=== PATIENT | female | born 1940 | race Caucasian/White ===

== ENCOUNTER 2016-06-03 12:16 | Emergency (ER) | payer MEDICARE, OTHER ==
[~2016-06-03 12:16] MED LIST: AMIT25TA26 PO; ASP81TEC PO; BUDE0.5A IH; BUSP15 PO; ESCI20TA PO; ESTR1TAB15 PO; HCTZ1TAB PO; IPRA3AMP HHN; NAPR500T PO; OMEP40CA25 PO; OXYC-176 PO; POTA8CAP10 PO; PRE20 PO; SYN25 PO; TRAZ-146 PO; ZES20T PO
[2016-06-03 12:27] VITALS: BP 146/64; PULSE 81; RESP 18; O2SAT 99
--- NOTE | 2016-06-03 12:31 | ED.REPORT ---
HPI-Trauma Minor / Fall Date of Service Jun 03, 2016 ED Provider: Reinier Hermosillo DO Pt is a 75 y/o female w/ a hx of severe COPD/emphysema, anxiety, HTN, hypothyroid, prior lung and bladder CA, presenting to the ED c/o multiple falls and worsening of unsteady gait onset 1.5 weeks ago. The patient states she has been having recurrent falls for the past 2 years which are preceded by a sudden sensation of unsteady gait which she describes is not dizziness, not a spinning- sensation, and not lightheadedness. For the past 1.5 weeks she has been feeling worse requiring her to use a cane. She c/o associated intermittent VALERO for 1 week , mild intermittent left ear pain, worsening memory. Pt denies focal numbness or weakness, VALERO, cough, SOB, CP, speech changes, vision changes, abdominal pain , nausea, vomiting, significant injuries from any falls. The patient lives at home with multiple family members. When she falls she either falls forward or backwards but there is no specific pattern. She has several bruises on her arm associated with these falls but has not had any fractures or significant injuries. She does have a walker at home that she can use also. Nursing Notes Stated Complaint: DIZZY Chief Complaint: Multiple Trauma/Fall Nursing Notes Reviewed: Yes Allergies: Coded Allergies: No Known Allergies (Verified , 02/15/04) Scheduled Albuterol Sulfate/Ipratropium (Duoneb 2.5-0.5MG/3ML Soln) 3 Ml Nebu 3 ML HHN QID Amitriptyline-Expunged Drug, Do Not Renew! (Amitriptyline-Expunged Drug, Do Not Renew!) 25 Mg Tablet 25-50 MG PO hs prn sleep Aspirin-Expunged Drug, Do Not Renew! (Aspirin EC-Expunged Drug, Do Not Renew!) 81 Mg Tablet 81 MG PO DAILY Budesonide-Expunged Drug, Do Not Renew! (Budesonide Neb-Expunged Drug, Do Not Renew!) 0.5 Mg/2 Ml Ampul.neb 0.5 MG IH BID Buspirone-Expunged Drug, Do Not Renew! (Buspirone-Expunged Drug, Do Not Renew!) 15 Mg Tablet 15 MG PO AM Buspirone-Expunged Drug, Do Not Renew! (Buspirone-Expunged Drug, Do Not Renew!) 15 Mg Tablet 30 MG PO HS Escitalopram-Expunged Drug, Do Not Renew! (Lexapro-Expunged Drug, Do Not Renew! ) 20 Mg Tablet 20 MG PO DAILY Estrogen,Con/M-Gcxnjbq-Mxhtqiqn Drug! (Prempro 0.3/1.5-Expunged Drug, Do Not Renew!) 1 Tab Tablet 1 TAB PO DAILY Hctz/Spirono-Expunged Drug, Do Not Renew! (Aldactazide 25/25-Expunged Drug, Do Not Renew) 1 Tab Tablet 1 TAB PO DAILY Levothyroxine-Expunged Drug, Do Not Renew! (Synthroid-Expunged Drug, Do Not Renew!) 25 Mcg Tablet 50 MCG PO DAILY Decrease dose to 25mcg daily Lisinopril-Expunged Drug, Do Not Renew! (Lisinopril-Expunged Drug, Do Not Renew! ) 20 Mg Tablet 20 MG PO DAILY Naproxen-Expunged Drug, Do Not Renew! (Naprosyn-Expunged Drug, Do Not Renew!) 500 Mg Tablet 500 MG PO bid prn pain Omeprazole-Expunged Drug, Do Not Renew! (Omeprazole-Expunged Drug, Do Not Renew! ) 40 Mg Capsule.dr 40 MG PO DAILY Potassium Chl-Expunged Drug, Do Not Renew! (Potassium Chl-Expunged Drug, Do Not Renew!) 8 Meq Capsule.sa 8 MEQ PO DAILY General Time Seen by MD: 12:19 Chief Complaint Fall Hx Obtained From: Patient, EMS Arrived By: Ambulance Onset Occurred: 1 week ago Symptom Duration: Since onset Location: Head Quality: Aching Severity: Current: Mild Severity: Maximum: Mild Past Medical History Past Medical History 1. Advanced COPD/emphysema. 2. Chronic anxiety and depression. 3. GERD. 4. Hypertension. 5. Hypothyroid, on replacement. 6. History of both lung cancer and bladder cancer in past 7. History of benign parathyroid tumor. Past Surgical History Right upper lobectomy for lung cancer Cholecystectomy bladder surgery (Transurethral resection of bladder tumor in 2003) Smoking History Former Smoker Social History Alcohol Use: "Social" Ambulatory Status Cane Review of Systems Constitutional: Denies: Chills, Fever Respiratory: Denies: Non-productive cough, Shortness of breath Musculoskeletal: Denies: Back pain, Neck pain Neurologic: Reports: Headache, Problem walking, Denies: Bladder dysfunction, Bowel dysfunction, Change LOC, Confusion, Focal weakness, Lightheaded, Numbness, Slurred speech, Spinning sensation, Syncope, Unable to speak, Vision change Complete sys rev & neg: except as marked. Cardiovascular: Denies: Chest pain, Dyspnea on exertion GI: Denies: Abdominal pain, Nausea, Vomiting Physical Exam Initial Vital Signs Vital Signs (First) Date Time Temp Pulse Resp B/P Pulse Ox O2 Delivery O2 Flow Rate FiO2 06/03/16 12:27 36.8 81 18 146/64 99 Room Air Initial VS: Reviewed, Vital signs normal Respiratory: Breath sounds normal, Clear to auscultation, No respiratory distress Cardiovascular: Regular rate & rhythm, Heart sounds normal, Intact distal pulses Abdomen / GI: Soft, Non-tender, No guarding, No rebound, No distention Extremities: Vascular intact, Neuro intact, No swelling, No tenderness Skin: Warm, Dry, No cyanosis Psychiatric: Mood/affect normal, Behavior normal, Normal thought content General/Constitutional: Awake, Alert, No acute distress, Well appearing, Cooperative, Not toxic appearing Neck: Atraumatic, Supple, No meningismus, Full range of motion, No swelling, Non-tender, No midline vertebral tend Head / Eyes: Atraumatic, Normocephalic, PERRL, EOMI, No nystagmus, No periorbital redness, No periorbital swelling, No photophobia ENT: Atraumatic, Airway patent, Mucous membranes moist, Tympanic membs NL, Ext aud canal NL Neurologic: Oriented X3, Speech NL, No motor deficits, No sensory deficits, CN II - XII intact, Cerebellar NL, Memory NL Interpretation & Diagnostics Lab Results Interpretation Result Diagram: 06/03/16 1230 06/03/16 1230 Test 06/03/16 12:30 06/03/16 15:38 White Blood Count 4.8th/mm3 (3.8-10.1) Red Blood Count 4.12mil/mm3 (3.90-5.20) Hemoglobin 13.1g/dL (12.0-15.6) Hematocrit 38.3% (35.0-46.0) Mean Corpuscular Volume 93.0fL (81-100) Mean Corpuscular Hemoglobin 31.8pg (27.0-35.0) Mean Corpuscular Hemoglobin Concent 34.2% (32.0-37.0) Red Cell Distribution Width 12.5% (12.3-15.4) Platelet Count 235bil/L (150-400) Neutrophils (%) (Auto) 52.3% (40-74) Lymphocytes (%) (Auto) 30.9% (14-46) Monocytes (%) (Auto) 14.5% (4-12) Eosinophils (%) (Auto) 1.9% (0-5) Basophils (%) (Auto) 0.2% (0-3) Sodium Level 133mEq/L (134-144) Potassium Level 3.8mEq/L (3.5-5.2) Chloride Level 92mEq/L (97-108) Carbon Dioxide Level 26mmol/L (18-29) Blood Urea Nitrogen 16mg/dL (8-27) Creatinine 0.68mg/dL (0.57-1.00) Estimat Glomerular Filtration Rate 121mL/min (>59) Glucose Level 106mg/dL (60-99) Lactic Acid Level 0.9mmol/L (0.4-2.0) Calcium Level 9.8mg/dL (8.5-10.1) Magnesium Level 1.8mg/dL (1.6-2.6) Total Bilirubin 0.3mg/dL (0.0-1.2) Aspartate Amino Transf (AST/SGOT) 19U/L (0-50) Alanine Aminotransferase (ALT/SGPT) 13U/L (0-32) Alkaline Phosphatase 50U/L (25-165) Total Protein 6.9g/dL (6.4-8.4) Albumin 4.3g/dL (3.4-5.0) Urine Color Yellow (YELLOW) Urine Appearance Clear (CLEAR,HAZY) Urine pH 7.0 (5.0-8.0) Urine Specific [place] 1.015 (1.003-1.035) Urine Protein Negativemg/dL (NEG,TRACE) Urine Glucose (UA) Negativemg/dL (NEGATIVE) Urine Ketones Tracemg/dL (NEGATIVE) Urine Occult Blood Negative (NEGATIVE) Urine Nitrite Negative (NEGATIVE) Urine Bilirubin Negative (NEGATIVE) Urine Urobilinogen Normalmg/dL (NORMAL) Urine Leukocyte Esterase Negative (NEGATIVE) Urine RBC 0-2/hpf (0-2) Urine WBC 0-5/hpf (0-5) Urine Epithelial Cells Moderate/hpf (NONE-MOD) Urine Crystals None seen (NONE SEEN) Urine Bacteria Few/hpf (NONE-FEW) Urine Hyaline Casts None/lpf (NONE) Urine Granular Casts None seen (NONE SEEN) Urine Waxy Casts None seen (NONE SEEN) Urine Red Blood Cell Casts None seen (NONE SEEN) Urine White Blood Cell Casts None seen (NONE SEEN) Urine Mucus None seen (None Seen) Urine Trichomonas None seen (NONE SEEN) Urine Yeast None (NONE SEEN) Urinalysis Comment None Urine Culture Reflexed Not indicated ECG Interpretation ECG Interpretation: Sinus rhythm rate 76 Nonspecific IVCD Time: 12:43 Interpreted by: ED physician Normal ECG Interpretation: No acute ischemic changes X-Ray Chest Interpretation Chest Xray Interpretation: IMPRESSION: 1. Subacute disease is not seen a semiupright portable chest. Previous right thoracotomy with postsurgical changes which are unchanged. Dictated by: Edvin Beckett M.D. on 06/03/2016 at 13:41 Approved by: Edvin Beckett M.D. on 06/03/2016 at 14:04 View: Portable, 1 view Interpretation / Wet Read by: Interpret - Radiologist CT Head Interpretation IMPRESSION: No acute intracranial abnormality. No traumatic change. Mild atrophic change. Dictated by: Edvin Beckett M.D. on 06/03/2016 at 13:30 Approved by: Edvin Beckett M.D. on 06/03/2016 at 13:31 Study: Head CT no contrast Interpretation / Wet Read by: Interpret - Radiologist Re-Eval/Medical Decision Med Decision/Clinical Course 75-year-old female with a history of multiple medical problems presents with a 2 year history of recurrent falls and unsteady gait which is been somewhat worse the past week and a half. Despite a thorough evaluation, all tests returned negative today. There is no evidence of CVA which should have appeared on CT scan if her symptoms were subacute in the past 1.5 weeks. Her neurologic exam is completely normal today with no signs of stroke. Her falls do not occur in a specific pattern such as to one side or the other. There is no evidence of significant lower extremity weakness or injury to cause these falls. Her EKG was unrevealing for cause of falls and she does not describe them as vertiginous or presyncopal. Chest x-ray today was normal also. It seems to me that she may benefit from an outpatient workup including an evaluation by neurology to find out why these falls have been happening over the past 2 years and becoming more frequent. In the meantime I advised her to use a walker instead of her cane for gait stability and she agrees. Vitamin B12 level pending at the time of discharge. Patient will follow with her PCP to discuss further workup Re-Evaluation/Progress : Time of Eval: 17:13 Re-Evaluation/Progress Note: Pt rechecked. Discussed negative imaging findings. Informed pt of plan for treatment. Pt understands and agrees with plan for treatment. F/U instructions and RTER warnings given. All questions addressed. Counseled Regarding: Diagnosis, Lab results, Need for follow-up, When/why to return to ED Discharge & Departure Impression: Primary Impression: Recurrent falls Additional Impression: Unsteady gait Disposition: Home Discharge Condition All VS Reviewed: Yes Condition: Stable Patient Instructions: Fall Prevention for Older Adults (GEN) Additional Instructions: Your labs, EKG, CT scan of the head, and urine analysis were all normal today. The cause of your symptoms is unclear at this point, but all emergent conditions have been ruled out. I recommend you use a a walker for increased stability. I recommend you meet with your primary care doctor to discuss further evaluation of these recurrent falls as an outpatient. A neurology consult may be considered. Return to the emergency department for severe headache, one-sided numbness or weakness of your legs or arms, speech or vision changes, confusion, or for other concerning symptoms. Referrals: Chacha Marquez MD (PCP) [place] Attestation Portions of this note were transcribed by Jaime Ziegler. I, Dr. Hermosillo personally performed the history, physical exam and medical decision-making; I reviewed and confirmed the accuracy of the information in the transcribed note. Signed by Linda Castellano, 06/03/16 - 1400 copies to: Chacha Marquez MD, Gary R DO Jun 03, 2016 12:31 JAIME ZIEGLER Jun 03, 2016 12:41
[2016-06-03 13:18] LABS: BASOPHILS % (AUTO) 0.2 % (0-3); EOSINOPHILS % (AUTO) 1.9 % (0-5); MONOCYTES % (AUTO) 14.5 % (4-12); Mean Corpuscular Hemoglobin 31.8 pg (27.0-35.0); NEUTROPHILS % (AUTO) 52.3 % (40-74); Platelet Count 235 bil/L (150-400)
[2016-06-03 13:28] LABS: Magnesium 1.8 mg/dL (1.6-2.6)
--- NOTE | 2016-06-03 13:33 | DRSVH ---
PROCEDURE: CT BRAIN WITHOUT CONTRAST ([id number]) INDICATIONS: recurrent falls/dizziness, head trauma TECHNIQUE: Noncontrast 4.5 mm thick angled axial sections acquired from the foramen magnum to the vertex, with c oronal reformats. COMPARISON: [facility], CT, BRAIN W/O CONTRAST, 07/20/2014, 14:08. FINDINGS: Image quality: Excellent. CSF spaces: Basal cisterns are patent. No extra-axial fluid collections. Ventricles are normal in size and shape. Brain: No midline shift. No intracranial masses or hemorrhage. Rodriguez-white matter interface is norm al. Skull and face: Calvarium and visualized facial bones are intact, without suspicious lesions. Sinuses: Visualized sinuses and mastoids are clear. IMPRESSION: No acute intracranial abnormality. No traumatic change. Mild atrophic change. Dictated by: Edvin Beckett M.D. on 06/03/2016 at 13:30 Approved by: Edvin Beckett M.D. on 06/03/2016 at 13:31
--- NOTE | 2016-06-03 14:05 | DRSVH ---
PROCEDURE: X-RAY CHEST ONE VIEW, PORTABLE ([id number]) INDICATIONS: RECURRENT FALLS, CONFUSION TECHNIQUE: One view of the chest was acquired. COMPARISON: [facility], [place], CHEST 2VW, 05/15/2014, 12:05. [facility], [place], XR CHEST 2VW, 01/19/2016, 11:40. FINDINGS: Surgical changes and devices: Sternotomy wires are present. Vascular clips overlying the upper right lung field and right hilar area are present as well as a portion of a missing rib consistent with tho racotomy. Lungs and pleura: No pleural effusions or pneumothorax. Lungs are clear of acute disease.. Mediastinum: Mediastinal contours appear normal. Heart size is normal. Bones and chest wall: No suspicious bony lesions. Overlying soft tissues appear unremarkable. IMPRESSION: 1. Subacute disease is not seen a semiupright portable chest. Previous right thoracotomy with postsurgical changes which are unchanged. Dictated by: Edvin Beckett M.D. on 06/03/2016 at 13:41 Approved by: Edvin Beckett M.D. on 06/03/2016 at 14:04
[2016-06-03 14:52] VITALS: BP 146/72; PULSE 77; RESP 16; O2SAT 97
[2016-06-03 15:49] VITALS: BP 149/68; PULSE 79; RESP 19; O2SAT 97
[2016-06-03 16:44] LABS: APPEARANCE,URINE CLEAR (CLEAR,HAZY); COLOR,URINE YELLOW (YELLOW); OCCULT BLOOD,URINE NEGATIVE (NEGATIVE); UROBILINOGEN,URINE NORMAL (NORMAL)
[2016-06-03 18:00] VITALS: BP 135/63; PULSE 76; RESP 15; O2SAT 96
== END 2016-06-03 17:55 | disposition home or self-care (01) ==
LOC: SED 12:16
DX: R29.6 Repeated falls (principal); W18.39XA Other fall on same level, initial encounter; Y93.89 Activity, other specified; Y92.89 Other specified places as the place of occurrence of the external cause; Y99.8 Other external cause status; R26.81 Unsteadiness on feet; R51 Headache; H92.02 Otalgia, left ear; J44.9 Chronic obstructive pulmonary disease, unspecified; I10 Essential (primary) hypertension; K21.9 Gastro-esophageal reflux disease without esophagitis; E03.9 Hypothyroidism, unspecified; Z87.891 Personal history of nicotine dependence

== ENCOUNTER 2016-07-07 12:17 | Emergency (ER) | payer MEDICARE, OTHER ==
[~2016-07-07] VITALS: Ht 172.7 cm; Wt 69.1 kg
[~2016-07-07 12:17] MED LIST changes: -OXYC-176 PO; -PRE20 PO; -TRAZ-146 PO
[2016-07-07 12:19] VITALS: BP 138/84; PULSE 76; RESP 16; O2SAT 98
--- NOTE | 2016-07-07 14:50 | ED.REPORT ---
HPI-Head Prob / Injury Date of Service July 07, 2016 ED Provider: Dwight Cotter MD Patient is a 75-year-old female with past medical history of hypothyroidism, COPD, hypertension, asthma, osteopenia, lung and bladder cancer in remission, presents to [facility] Emergency Department complaining of pain in the back of her head after she fell backwards last night on her driveway. Patient denies loss of consciousness. Patient denies headache, vision changes, vomiting, weakness, neurologic deficit. Patient reports nausea and decreased appetite since last night. Patient has chronic balance issues and she ambulates with a cane and walker. She states she just came back home from shopping last night and was unloading groceries, and when she tried to close the door of her trunk she lost her balance and fell backwards hitting the back of her head on the rocks on her driveway. Family states they did not bring her in last night as she was alert and oriented , in no acute distress so they decided to watch for development of any new symptoms. This morning she reported nausea, decreased appetite and slight "tingling sensation" in her tights. Otherwise she feels well. Nursing Notes Stated Complaint: FELL BACKWARDS Chief Complaint: Head, Face, Neck Trauma Nursing Notes Reviewed: Yes Allergies: Coded Allergies: No Known Allergies (Verified , 07/07/16) Scheduled Albuterol Sulfate/Ipratropium (Duoneb 2.5-0.5MG/3ML Soln) 3 Ml Nebu 3 ML HHN QID Amitriptyline-Expunged Drug, Do Not Renew! (Amitriptyline-Expunged Drug, Do Not Renew!) 25 Mg Tablet 25-50 MG PO hs prn sleep Aspirin-Expunged Drug, Do Not Renew! (Aspirin EC-Expunged Drug, Do Not Renew!) 81 Mg Tablet 81 MG PO DAILY Budesonide-Expunged Drug, Do Not Renew! (Budesonide Neb-Expunged Drug, Do Not Renew!) 0.5 Mg/2 Ml Ampul.neb 0.5 MG IH BID Buspirone-Expunged Drug, Do Not Renew! (Buspirone-Expunged Drug, Do Not Renew!) 15 Mg Tablet 15 MG PO AM Buspirone-Expunged Drug, Do Not Renew! (Buspirone-Expunged Drug, Do Not Renew!) 15 Mg Tablet 30 MG PO HS Escitalopram-Expunged Drug, Do Not Renew! (Lexapro-Expunged Drug, Do Not Renew! ) 20 Mg Tablet 20 MG PO DAILY Estrogen,Con/P-Uimlldm-Kqndfjcw Drug! (Prempro 0.3/1.5-Expunged Drug, Do Not Renew!) 1 Tab Tablet 1 TAB PO DAILY Hctz/Spirono-Expunged Drug, Do Not Renew! (Aldactazide 25/25-Expunged Drug, Do Not Renew) 1 Tab Tablet 1 TAB PO DAILY Levothyroxine-Expunged Drug, Do Not Renew! (Synthroid-Expunged Drug, Do Not Renew!) 25 Mcg Tablet 50 MCG PO DAILY Decrease dose to 25mcg daily Lisinopril-Expunged Drug, Do Not Renew! (Lisinopril-Expunged Drug, Do Not Renew! ) 20 Mg Tablet 20 MG PO DAILY Naproxen-Expunged Drug, Do Not Renew! (Naprosyn-Expunged Drug, Do Not Renew!) 500 Mg Tablet 500 MG PO bid prn pain Omeprazole-Expunged Drug, Do Not Renew! (Omeprazole-Expunged Drug, Do Not Renew! ) 40 Mg Capsule.dr 40 MG PO DAILY Potassium Chl-Expunged Drug, Do Not Renew! (Potassium Chl-Expunged Drug, Do Not Renew!) 8 Meq Capsule.sa 8 MEQ PO DAILY General Time Seen by Provider: 14:20 Chief Complaint Abrasion Hx Obtained From: Patient, Daughter Arrived By: Walk-in Onset Occurred: 9 - 12 hours ago (Patient reports fall around 4 pm) Symptom Duration: 5 - 8 hours Progression Since Onset: Intermittent Location: : Occipital region R Quality: Aching Severity: Current: Mild Recent Healthcare: No recent doctor visit Risk-Head Prob / Injury )( IC Bleed Risk Strat Age (<1 yr or >60 yrs) RF Statements: Risk factors reviewed Head CT Imaging Patient Presents WITHOUT: Loss of Conciousness Consider Non Contrast CT for: >/= 60 yo Age RF Statements: Risk factors reviewed Bleeding Risk Stratification Malignancy (h/o lung and bladder cancer) RF Statements: Risk factors reviewed Past Medical History Past Medical History 1. Advanced COPD/emphysema. 2. Chronic anxiety and depression. 3. GERD. 4. Hypertension. 5. Hypothyroid, on replacement. 6. History of both lung cancer and bladder cancer in past 7. History of benign parathyroid tumor. Past Surgical History Right upper lobectomy for lung cancer Cholecystectomy bladder surgery (Transurethral resection of bladder tumor in 2003) Smoking History Former Smoker Social History Alcohol Use: "Social" Drug Use: Denies drug use Other Social History: Ambulatory Status Cane Review of Systems Constitutional: Denies: Fatigue, Fever, Lethargy, Malaise, Weakness - generalized Skin: Reports Bruising (right occipito-parietal area, right lateral thigh) Neurologic: Denies: Abnormal movement, Bladder dysfunction, Bowel dysfunction, Change LOC, Confusion, Dizziness, Focal weakness, Headache, Lightheaded, Numbness, Problem walking, Seizure, Slurred speech, Spinning sensation, Syncope , Unable to speak, Vision change, Weakness Respiratory: Denies: Shortness of breath Cardiovascular: Denies: Chest pain Psychiatric: Denies: Anxiety Physical Exam Initial Vital Signs Vital Signs (First) Date Time Temp Pulse Resp B/P Pulse Ox O2 Delivery O2 Flow Rate FiO2 07/07/16 12:19 36.2 76 16 138/84 98 Room Air Initial VS: Reviewed, Vital signs normal Respiratory: Breath sounds normal, Clear to auscultation, No respiratory distress Cardiovascular: Regular rate & rhythm, Heart sounds normal Abdomen / GI: Soft, Non-tender, No distention Back: No CVA tenderness Lymphatic: No lymphadenopathy Extremities: Vascular intact, Neuro intact, No swelling, No tenderness Skin: Warm, Dry, No cyanosis Psychiatric: Mood/affect normal, Behavior normal, Normal thought content General/Constitutional: Awake, Alert, No acute distress, Well appearing, Well developed, Well nourished, Cooperative Head / Eyes: PERRL, EOMI, No nystagmus, No periorbital redness Head / Scalp Abnl: Positive: Scalp tender occipital R Trauma - General: Positive: Abrasion (right occipito-parietal area) ENT: Atraumatic, Mucous membranes moist, Nose exam NL Trauma - General: Positive: Ecchymosis (right lateral thigh) Neck: Atraumatic, Supple, Full range of motion Neurologic: Oriented X3, Speech NL, No motor deficits, No sensory deficits, CN II - XII intact, Cerebellar NL, Memory NL Interpretation & Diagnostics CT Head Interpretation Study: Head CT no contrast Interpretation / Wet Read by: Interpret - Radiologist CT C-Spine Interpretation Study type: CT no contrast Interpretation / Wet Read by: Interpret - Radiologist (CT revealed normal head without intracranial masses or hemorrhage. ) Re-Eval/Medical Decision Med Decision/Clinical Course In summary, this is a 75-year-old female who comes in for evaluation of head trauma sustained night before her presentation to [facility] ED. Patient without focal neurological deficit , no signs of a basilar skull fracture, vomiting, severe headache, signs of open depressed skull fracture. However, patient is older than 65 years of age, therefore we decided to proceed with CT head without contrast. CT revealed normal head without intracranial masses or hemorrhage. Patient will be discharged home with PCP follow up. Discharge & Departure Shift Change Sign-Out Response to Therapy: Improved Primary Impression: Head trauma Encounter type: initial encounter Qualified Code: S09.90XA - Unspecified injury of head, initial encounter Disposition: Home Condition: Stable Additional Instructions: Thank you for seeking care at the emergency room today. Your head CT is normal. No intracranial masses or hemorrhage was identified. We recommend applying ice to the affected area and taking Tylenol if needed for pain. Please come back to ED if you you develop new symptoms: altered mental status, chest pain, shortness of breath, vomiting, weakness. Thank you for letting us partake in your care today. Referrals: Chacha Marquez MD (PCP) Crit Care Except Billable Proc Services Performed: Reviewing imaging, Discussing patient care, Documentation in record, Time with fam/surrogate EDSupervising Provider for APC: Dwight Cotter MD Attending Statement The patient was seen and examined together with Dr. Reyna on 07/07/16 and I agree with the history, exam and plan as outlined in the note above. copies to: Chacha Marquez MD, Oksana S DO July 07, 2016 14:50 Dwight Cotter MD July 10, 2016 17:41
--- NOTE | 2016-07-07 16:02 | DRSVH ---
PROCEDURE: CT BRAIN WITHOUT CONTRAST ([id number]) INDICATIONS: head trauma TECHNIQUE: Noncontrast 4.5 mm thick angled axial sections acquired from the foramen magnum to the vertex, with c oronal reformats. COMPARISON: [facility], CT, CT BRAIN WO CON, 06/03/2016, 12:51. FINDINGS: Image quality: Excellent. CSF spaces: Basal cisterns are patent. No extra-axial fluid collections. Ventricles are normal in size and shape. Brain: No midline shift. No intracranial masses or hemorrhage. Rodriguez-white matter interface is norm al. Skull and face: Calvarium and visualized facial bones are intact, without suspicious lesions. Sinuses: Visualized sinuses and mastoids are clear. IMPRESSION: Normal head CT Dictated by: Angel Henriquez M.D. on 07/07/2016 at 15:58 Approved by: Angel Henriquez M.D. on 07/07/2016 at 16:00
== END 2016-07-07 19:09 | disposition home or self-care (01) ==
LOC: SED 12:17
DX: S09.90XA Unspecified injury of head, initial encounter (principal); W18.30XA Fall on same level, unspecified, initial encounter; Y93.01 Activity, walking, marching and hiking; Y99.8 Other external cause status; Y92.014 Private driveway to single-family (private) house as the place of occurrence of the external cause; J45.909 Unspecified asthma, uncomplicated; I10 Essential (primary) hypertension; K21.9 Gastro-esophageal reflux disease without esophagitis; E03.9 Hypothyroidism, unspecified; Z79.890 Hormone replacement therapy; Z90.2 Acquired absence of lung [part of]; Z85.51 Personal history of malignant neoplasm of bladder; Z87.891 Personal history of nicotine dependence; Z85.118 Personal history of other malignant neoplasm of bronchus and lung; Z79.51 Long term (current) use of inhaled steroids; Z79.82 Long term (current) use of aspirin